=== PATIENT | female | born 1990 | race Caucasian/White ===

== ENCOUNTER 2021-04-19 12:35 | Emergency (ER) | payer OTHER, SELFPAY ==
--- NOTE | ~2021-04-19 | XR_ITS ---
XR lumbar spine min 4V DATE: 04/19/2021 13:50 INDICATION: Fall down stairs. Back pain. TECHNIQUE: AP, lateral, bilateral oblique and coned lateral lumbosacral views COMPARISON: None FINDINGS: There is minimal dextroscoliosis. There is severe degenerative disc disease at L5-S1. There is mild to moderate loss of interspace heig ht at L4-5. No spondylolysis or spondylolisthesis. The lumbar pedicles are intact. No fracture or bone destructio n is evident. The sacroiliac joints are intact. IMPRESSION: Severe degenerative disc disease at L5-S1 Reviewed, dictated and finalized at location B.
--- NOTE | ~2021-04-19 | XR_ITS ---
XR shoulder RT min 2V DATE: 04/19/2021 13:50 INDICATION: Fall downstairs. Right shoulder injury, pain TECHNIQUE: 4 views COMPARISON: None FINDINGS: No fracture or dislocation, periosteal reaction or bone destruction. No abnormal soft tiss ue calcification. There is thoracic dextroscoliosis. IMPRESSION: Negative right shoulder Reviewed, dictated and finalized at location B. IMPRESSION: Negative right shoulder
[2021-04-19 12:39] VITALS: BP 129/77; PULSE 81; RESP 18; TEMP 36.8; O2SAT 100
--- NOTE | 2021-04-19 13:45 | ED.FALL ---
HPI - Fall General Chief Complaint: Fall Stated Complaint: Fall Time Seen by Provider: 04/19/21 13:08 History of Present Illness HPI Narrative: Patient presents after a fall. Patient reports she was walking down her steps when she slipped on the carpet and slid down her stairs. She attempted to go about her daily activities however pain was increasing so she came to the ER for evaluation. Reports a history of right-sided sciatica which has been exacerbated by her recent fall. Her pain is primarily in her lower back is achy, constant, worse with any sort of movement radiates down her right leg. She also reports right shoulder pain achy, constant, no radiation, worse with use of the extremity. She does not believe she had any loss of consciousness she denies any neck pain she denies any focal numbness or weakness. She denies any bowel or bladder incontinence Related Data Allergies Allergy/AdvReac Type Severity Reaction Status Date / Time No Known Allergies Allergy Verified 04/19/21 13:05 Review of Systems Review of Systems: CONSTITUTIONAL: Denies fever, chills, or sweats. EYES: Denies visual changes, redness, or discharge. ENT: Denies rhinorrhea, congestion, sore throat, or otalgia. CARDIOVASCULAR: Denies chest pain, palpitations, or edema. RESPIRATORY: Denies cough or dyspnea. GASTROINTESTINAL: Denies abdominal pain, nausea, vomiting, or diarrhea. GENITOURINARY: Denies dysuria or hematuria. SKIN: Denies rash or itching. MUSCULOSKELETAL: Denies diffuse myalgia. NEUROLOGIC: Denies headache, numbness, dizziness, or weakness. PSYCHIATRIC: Denies anxiety or depression. All systems reviewed & are unremarkable except as noted in HPI and below Exam Narrative: GENERAL: Well-appearing, well-nourished, and in no acute distress. HEAD: Normocephalic, atraumatic. EYES: PERRLA and EOMI. ENT: Nares clear, no rhinorrhea or epistaxis. Mucous membranes moist. NECK: Supple. No masses. No JVD CHEST: Clear to auscultation. No respiratory distress. No wheezes rales or rhonchi EXTREMITIES: Normal range of motion. Mild diffuse tenderness in the right shoulder most noted posteriorly BACK: Moderate tenderness palpation on the right lumbar paraspinal area no step-offs or focal bony tenderness SKIN: Warm, dry, no rash. NEURO: 5 out of 5 strength in all extremities sensation intact to light touch in all extremities alert and oriented x3. PSYCH: Normal mood and affect. Course Reevaluation(s) Reevaluation #1: Patient resting comfortably she denied pain medications earlier. Imaging reviewed with patient. Patient comfortable outpatient plan. Date: 04/19/21 Time: 14:36 Vital Signs Vital signs: Vital Signs Temperature 36.8 C 04/19/21 12:39 Pulse Rate 81 04/19/21 12:39 Respiratory Rate 18 04/19/21 12:39 Blood Pressure 129/77 04/19/21 12:39 Pulse Oximetry 100 04/19/21 12:39 Temperature 36.8 C 04/19/21 12:39 Pulse Rate 81 04/19/21 12:39 Respiratory Rate 18 04/19/21 12:39 Blood Pressure 129/77 04/19/21 12:39 Pulse Oximetry 100 04/19/21 12:39 MDM - Fall MDM Narrative Medical decision making narrative: H&P as above, vss, pt looks clinically well, exam without open or draining wounds or neurovascular compromise, imaging clinically unremarkable for acute process, additional labs/img considered, symptomatic relief available as needed, on reevaluation pt continues to looks clinically well. Suspect mechanical event and soft tissue injuries, dns fracture, cauda equina, conus medullaris, cord compromise, intracranial hemorrhage. plan to tx/monitor as op w/ pcm f/u findings/plan discussed with pt, pt agree/comfortable with plan, return precautions given Imaging Data Radiologist's impression: Impressions Shoulder X-Ray 04/19/21 13:52 IMPRESSION: Negative right shoulder Lumbar Spine X-Ray 04/19/21 13:54 IMPRESSION: Severe degenerative disc disease at L5-S1 Discharge Plan Discharge Clinical Imp
== END 2021-04-19 14:51 | disposition home or self-care (01) ==
PROVIDERS: Emergency Provider Emergency Medicine; PCP Nurse Practitioner Family
DX: S30.0XXA Contusion of lower back and pelvis, initial encounter (principal); M25.511 Pain in right shoulder; M54.41 Lumbago with sciatica, right side; M51.36 Other intervertebral disc degeneration, lumbar region; W10.9XXA Fall (on) (from) unspecified stairs and steps, initial encounter
CPT/HCPCS: 72110; 73030; 99284

== ENCOUNTER 2025-07-21 15:49 | Emergency (ER) | payer OTHER, SELFPAY ==
--- NOTE | ~2025-07-21 | CT_ITS ---
EXAMINATION: CT abdomen pelvis w con DATE: 07/21/2025 20:02 INDICATION: Right lower quadrant abdominal pain, nausea and diarrhea TECHNIQUE: Computed tomography (CT) of the abdomen and pelvis was performed with 100 mL Omnipaque-350 intravenous contrast. Automated exposure control and iterative reconstruction technique were employed. The dose-length product was 988.27 mGy-cm. COMPARISON: None FINDINGS: Lung bases are clear. Heart size is normal. No pericardial or pleural effusion. Liver, gallbladder, spleen, pancreas, bilateral adrenal glands and kidneys are normal. Bowels including the appendix are normal. 4 cm right ovarian cyst. The left ovary and the bladder are normal. 1.5 cm subserosal fibroid at the posterior aspect of fundus. No free intraperitoneal gas or fluid. No pathologically enlarged abdominal or pelvic lymphadenopathy. L5-S1 anterior spinal fusion with interbody bone graft cages and anterior plate-screw fixation. IMPRESSION: 1. 4 cm right ovarian cyst. No other acute intra-abdominal/pelvic process with normal appendix. 2. 1.5 cm subserosal uterine fibroid. Reviewed, dictated and finalized at location A. OF STOCK
--- NOTE | ~2025-07-21 | XR_ITS ---
EXAMINATION: XR chest 2V DATE: 07/21/2025 18:07 INDICATION: Productive cough. Upper respiratory tract infection. TECHNIQUE: PA and lateral views of the chest were obtained. COMPARISON: Chest CT dated 08/15/2017 FINDINGS: The lungs are clear with no focal airspace opacities, pulmonary edema, pleural effusion or pneumothorax. The cardiomediastinal silhouette is normal. Mild midthoracic spondylosis. IMPRESSION: 1. No acute cardiopulmonary disease. Reviewed, dictated and finalized at location A. OPERATIONS LEAD
--- OUTSIDE RECORDS SUMMARY | 2025-07-21 15:51 | XMS_ITS | Encounter Summary ---
Author Organization [facility] - [facility] Address [address] [place] [address] Care Team Providers Care Teacher Home Therapy Name Role Phone Lilly Craig Primary Care Provider [phone] Encounter Details Date Type Department Care Team (Late st Contact Info) Description 05/06/[email or web address] [facility] Multispecialty Care - [facility] [address] [facility], [address] [place] [phone] Anastasiya Shah APRN [address] [facility] [address] [place], [place] [id number] Surgery Social History Tobacco Use Types Packs/Day Years Used Date Smoking Tobacco: Never Smokeless Tobacco: Never Alcohol Use Standard Drinks/Week Comments Yes 0 (1 standard drink = 0.6 oz pur e alcohol) 1 x month PHQ-2 Answer Date Recorded PHQ-2 Score - If the patient scores above 3, please move on to questions 3-9 0 12/05/2021 Comments No Sex and Gender Information Value Date Recorded Sex Assigned at Female 10/28/2024 10:50 AM CDT Legal Sex Female 1:59 PM UNDERWATER ROBOTICIST Gender Identity Not on file Sexual Orientation Not on file documented as of this encounter Progress Notes * Lilian Llamas MA - 05/07/2023 12:59 PM CDT Anastasiya does this patient need a follow up before being put on the surgery schedule? documented in this encounter Plan of Treatment Upcoming Encounters Date Type Department Care Team (Late st Contact Info) Description 08/19/2025 1:40 PM UNDERWATER ROBOTICIST Office Visit [facility] Family & Internal Medicine - [address] [address] Lilly Craig FNP [address] [place] [address] documented as of this encounter Visit Diagnoses Not on filedocumented in this encounter Additional Health Concerns Assessment Noted Time PHQ-9 Depression Total Score: 2 12/06/19 22 4:22 PM CDT documented as of this encounter Care Teams Teacher Home Therapy Relationship Specialty Start Date End Date Lilly Craig FNP [address] [place] [address] PCP - General Nurse Practitioner Family 12/30/20 documented as of this encounter
--- OUTSIDE RECORDS SUMMARY | 2025-07-21 15:51 | XMS_ITS | Encounter Summary ---
Author Organization [facility] - [facility] Address [address] [place] [address] Care Team Providers Care Charging Operator Name Role Phone Lilly Craig Primary Care Provider [phone] Encounter Details Date Type Department Care Team (Late st Contact Info) Description 11/08/2023 MyChart Message Enc [facility] Multispecialty Care - [facility] [address] [facility], [address] [place] [phone] Zack Mcdonald MD [address] [place], [place] [phone] Release form Social History Tobacco Use Types Packs/Day Years Used Date Smoking Tobacco: Never Smokeless Tobacco: Never Alcohol Use Standard Drinks/Week Comments Yes 0 (1 standard drink = 0.6 oz pur e alcohol) 1 x month [facility] Utilities Answer Date Recorded In the past 12 months has e electric, gas, oil, or water company threatened to shut off services in your home? No 08/19/2023 Humiliation, Afraid, Rape, and Kick questionnair e Answer Date Recorded Within the last year, have y ou been afraid of your partner or ex-partner? No 08/19/2023 Within the last year, have y ou been humiliated or emotionally abused in other ways by your partner or ex-partner? No Within the last year, have y ou been kicked, hit, slapped, or otherwise physically hurt by your partner or ex-partner? No 08/19/2023 Within the last year, have y ou been raped or forced to have any kind of sexual activity by your partner or ex-partner? No 08/19/2023 Overall Financial Resource Strain (CARDIA) Answe r Date Recorded How hard is it for you to pa y for the very basics like food, housing, medical care, and heating? Not hard at all 08/19/2023 PHQ-2 Answer Date Recorded Patient Health Questionnaire-2 Score 0 07/25/2023 Hunger Vital Sign Answer Date Recorded Within the past 12 months, y ou worried that your food would run out before you got the money to buy more. Never true 08/19/19 24 Within the past 12 months, t he food you bought just didn't last and you didn't have money to get more. Never true 08/19/2023 PRAPARE - Transportation Answer Date Re corded In the past 12 months, has l ack of transportation kept you from medical appointments or from getting medications? No 07/23 In the past 12 months, has l ack of transportation kept you from meetings, work, or from getting things needed for daily living? No 08/19/2023 Housing Stability Vital Sign Answer Corey e Recorded In the last 12 months, was t here a time when you were not able to pay the mortgage or rent on time? No 08/19/2023 In the last 12 months, how many places have you lived? 1 08/19/2023 In the last 12 months, was t here a time when you did not have a steady place to sleep or slept in a care home (including now)? No 08/19/2023 Comments No Sex and Gender Information Value Date Recorded Sex Assigned at Female 10/28/2024 10:50 AM CDT Legal Sex Female 1:59 PM HEALTH AND SAFETY 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 Gender Identity Not on file Sexual Orientation Not on file documented as of this encounter Functional Status * Are you deaf or do you have serious difficulty hearing Answer Date of Assessment Author Status No 08/19/2023 10:50 PM Duane Allen RN Active * Are you blind or do you have serious difficulty seeing, even when wearing glasses? Answer Date of Assessment Author Status No 08/19/2023 10:50 PM Duane Allen RN Active * Do you have serious difficulty walking or climbing stairs? Answer Date of Assessment Author Status No 08/19/2023 10:50 PM Duane Allen RN Active * Do you have difficulty dressing or bathing? Answer Date of Assessment Author Status No 08/19/2023 10:50 PM Duane Allen RN Active * Because of a physical, mental, or emotional condition, do you have difficulty doing errands alone such as visiting a doctor's office or shopping? Answer Date of Assessment Author Status No 08/19/2023 10:50 PM Duane Allen RN Active documented as of this encounter Mental Status * Because of a physical, mental, or emotional condition, do you have serious difficulty concentrating, remembering, or making decisions? Answer Entry Date Author Status No 08/19/2023 10:50 PM Duane Allen RN Active documented in this encounter Progress Notes * Carol Rose LPN - 11/12/2023 3:27 PM CDT Pt picked up return to work form at [facility] today. documented in this encounter Plan of Treatment Upcoming Encounters Date Type Department Care Team (Late st Contact Info) Description 08/19/2025 1:40 PM HEALTH AND SAFETY 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 Office Visit [facility] Family & Internal Medicine - [place] [phone] [place] [address] Lilly Craig FNP [facility] [place] [address] documented as of this encounter Goals Goal Patient Goal Type Associated Problems Recent Progress Patient-Stated? Author Family - family caregiver with be involved in care transitions and discharge planning Lifestyle No Sander Shaffer, RN documented as of this encounter Visit Diagnoses Not on filedocumented in this encounter Additional Health Concerns Assessment Noted Time PHQ-9 Depression Total Score: 2 07/25/19 24 4:08 PM HEALTH AND SAFETY 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 documented as of this encounter Care Teams Charging Operator Relationship Specialty Start Date End Date Lilly Craig FNP [address] [place] [phone] PCP - General Nurse Practitioner Family 12/30/20 documented as of this encounter
--- OUTSIDE RECORDS SUMMARY | 2025-07-21 15:51 | XMS_ITS | Encounter Summary ---
Author Organization [facility] Address [address] [place] [address] Care Team Providers Care Supervisor Fish Bait Processing Name Role Phone Lilly Craig Primary Care Provider [phone] Encounter Details Date Type Department Care Team (Late st Contact Info) Description 04/08/2022 MyChart Message Enc [facility] Family & Internal Medicine - [place] [address] [place] [address] Lilly Craig FNP [address] [place] [address] Covid test Social History Tobacco Use Types Packs/Day Years [...] AM CDT Legal Sex Female 1:59 PM AIRLINE HOSTESS Gender Identity Not on file Sexual Orientation Not on file documented as of this encounter Progress Notes * ILDEFONSO Stephens - 04/09/2022 5:14 PM CDT We can offer her paxlovid treatment documented in this encounter Plan of Treatment Upcoming Encounters Date Type Department Care Team (Late st Contact Info) Description 08/19/2025 1:40 PM AIRLINE HOSTESS Office Visit [facility] Family & Internal Medicine - [address] [address] Lilly Craig FNP [address] [place] [address] documented as of this encounter Visit Diagnoses Not on filedocumented in this encounter Additional Health Concerns Assessment Noted Time PHQ-9 Depression Total Score: 2 12/06/19 22 4:22 PM CDT documented as of this encounter Care Teams Supervisor Fish Bait Processing Relationship Specialty Start Date End Date Lilly Craig FNP [address] [place] [address] PCP - General Nurse Practitioner Family 12/30/20 documented as of this encounter
--- OUTSIDE RECORDS SUMMARY | 2025-07-21 15:51 | XMS_ITS | Encounter Summary ---
Author Organization [facility] - [facility] Address [address] [place] [address] Care Team Providers Care Sponge Packer Name Role Phone Lilly Craig Primary Care Provider [phone] Encounter Details Date Type Department Care Team (Late st Contact Info) Description 09/06/2023 MyChart Message Enc [facility] Multispecialty Care - [facility] [address] [facility], [address] [place] [phone] Zack Mcdonald MD 3 [place], [place] [phone] Short term disability Social History Tobacco Use Types Packs/Day Years Used Date Smoking Tobacco: Never Smokeless Tobacco: Never Alcohol Use Standard Drinks/Week Comments Yes 0 (1 standard drink = 0.6 oz pur e alcohol) 1 x month [facility] Utilities Answer Date Recorded In the past [...] place to sleep or slept in a long-term (including now)? No 08/19/2023 Comments No Sex and Gender Information Value Date Recorded Sex Assigned at Female 10/28/2024 10:50 AM CDT Legal Sex Female 1:59 PM CLINICAL LABORATORY SCIENTIST Gender Identity Not on file Sexual Orientation [...] Allen RN Active documented in this encounter Plan of Treatment Upcoming Encounters Date Type Department Care Team (Late st Contact Info) Description 08/19/2025 1:40 PM CLINICAL LABORATORY SCIENTIST Office Visit [facility] Family & Internal Medicine - [address] [phone] Lilly Craig FNP [address] [place] [address] documented as of this encounter Goals Goal Patient Goal Type Associated Problems Recent Progress Patient-Stated? Author Family - family caregiver with be involved in care transitions and discharge planning Lifestyle No Sander Shaffer RN documented as of this encounter Visit Diagnoses Not on filedocumented in this encounter Additional Health Concerns Assessment Noted Time PHQ-9 Depression Total Score: 2 07/25/19 24 4:08 PM CLINICAL LABORATORY SCIENTIST documented as of this encounter Care Teams Sponge Packer Relationship Specialty Start Date End Date Lilly Craig FNP [address] [place] [address] PCP - General Nurse Practitioner Family 12/30/20 documented as of this encounter
--- OUTSIDE RECORDS SUMMARY | 2025-07-21 15:51 | XMS_ITS | Clinical Summary ---
Author Organization [facility] Address [address] [facility] [place] [address] Care Team Providers Care Juvenile Correctional Officer Name Role Phone Unavailable Primary Care Provider Unavailabl e Source Comments [facility],non-owned Affiliates and Associated Physician Practices is amultiple site organization consisting of ambulatory clinics and hospital sitesin [place], [place], [place] and [place]. This disclosure is being madepursuant to the Care Everywhere program and may not contain all information available regarding this patient. Last updated 18.[facility] Allergies No known active allergies Medications * Be aware that medications may not be up to date on this document. Alwaysverify current medications with the patient. norgestim-eth estrad triphasic (TRI-SPRINTEC) 0.18/0.215/0.25 MG-35 MCG tablet Take 1 tablet by mouth once daily Active SERTRALINE HCL PO Active SUMAtriptan (IMITREX) 100 MG tablet TAKE ONE TABLET BY MOUTH AT ONSET OF MIGRAINE. MAY REPEAT ONE TIME IN 2 4 HOURS 12/23/2020 Active Cyanocobalamin (VITAMIN B12) 100 MCG Active Ergocalciferol (VITAMIN D2 PO) Acti ve Social History Tobacco Use Types Packs/Day Years Used Date Smoking Tobacco: Never Smokeless Tobacco: Never PHQ-2 Answer Date Recorded PHQ2 TOTAL SCORE 0 11/24/2020 Comments No Sex and Gender Information Value Date Recorded Sex Assigned at Female 07/18/2021 11:30 AM CONSTRUCTION CONTRACTOR Legal Sex Female 11:28 AM CDT Gender Identity Not on file Sexual Orientation Not on file Last Filed Vital Signs Vital Sign Reading Time Taken Comments Blood Pressure 118/82 01/26/2021 2:29 PM CDT Pulse 74 01/26/2021 2:29 PM CDT Temperature 36.8 C (98.2 F) 01/26/2021 2:29 PM CDT Respiratory Rate 16 01/26/2021 2:29 PM CDT Oxygen Saturation 99% 01/26/2021 2:29 PM CDT Inhaled Oxygen Concentration - - Weight 99.8 kg (220 lb) 01/26/2021 2:29 PM CDT Height 170.2 cm (5' 7) 01/26/2021 2:29 PM CDT Body Mass Index 34.46 01/26/2021 2:29 PM CDT Plan of Treatment Health Maintenance Due Date Last Done Comments HIV SCREENING 2004 HEPATITIS C SCREENING 03/01/2007 DTAP/TDAP/TD VACCINES (1 - Tdap) 2008 HEPATITIS B VACCINE (1 of 3 - 19+ 3-dose series) 2008 HPV VACCINE (1 - 3-dose SCDM series) 2016 DEPRESSION SCREENING 07/22/2024 COVID-19 VACCINE (2 - 2024-2 6 season) 2025 10/29/2020 INFLUENZA VACCINE (#1) 2025 ZOSTER VACCINE (1 of 2) 2039 HIB VACCINE Aged Out No longer eligi ble based on patient's age to complete this topic MENINGOCOCCAL (Group B) VACC INE SHARED DECISION-MAKING Aged Out No longer eligibl e based on patient's age to complete this topic MENINGOCOCCAL GROUPS A/C/Y/W VACCINE Aged Out No longer eligible b ased on patient's age to complete this topic PNEUMOCOCCAL VACCINE Aged Out No long er eligible based on patient's age to complete this topic Insurance COMMERCIAL GENERIC Member Subscriber Plan / Payer (Ef fective 2020-Present) Name:Lilly Rosa Relation to Subscriber:Self Name:Stuart Rosen Lilly Payer ID:Not on file Type:Commercial Address: [place] [id number]
--- OUTSIDE RECORDS SUMMARY | 2025-07-21 15:51 | XMS_ITS | Encounter Summary ---
Author Organization [facility] Address [address] [place] [address] Care Team Providers Care C[employer]pillar Driver Name Role Phone Lilly Craig Primary Care Provider [phone] Encounter Details Date Type Department Care Team (Late st Contact Info) Description 08/08/2023 MyChart Message Enc [facility] Multispecialty Care - [facility] [address] [facility], [address] [place] [phone] Zack Mcdonald MD [address] [place], [place] [phone] Short term disability Social History Tobacco Use Types Packs/Day Years Used Date Smoking Tobacco: Never Smokeless Tobacco: Never Alcohol Use Standard Drinks/Week Comments Yes 0 (1 standard drink = 0.6 oz pur e alcohol) 1 x month PHQ-2 Answer Date Recorded Patient Health Questionnaire-2 Score 0 07/25/2023 Comments No Sex and Gender Information Value Date Recorded Sex Assigned at Female 10/28/2024 10:50 AM CDT Legal Sex Female 1:59 PM SENIOR LOAN OFFICER Gender Identity Not on file Sexual Orientation Not on file documented as of this encounter Plan of Treatment Upcoming Encounters Date Type Department Care Team (Late st Contact Info) Description 08/19/2025 1:40 PM SENIOR LOAN OFFICER Office Visit [facility] Family & Internal Medicine - [place] [address] [place] [address] Lilly Craig FNP [address] [place] [address] documented as of this encounter Visit Diagnoses Not on filedocumented in this encounter Additional Health Concerns Assessment Noted Time PHQ-9 Depression Total Score: 2 07/25/19 24 4:08 PM SENIOR LOAN OFFICER documented as of this encounter Care Teams C[employer]pillar Driver Relationship Specialty Start Date End Date Lilly Craig FNP [address] [place] [address] PCP - General Nurse Practitioner Family 12/30/20 documented as of this encounter
--- OUTSIDE RECORDS SUMMARY | 2025-07-21 15:51 | XMS_ITS | Encounter Summary ---
Author Organization [facility] Address [address] [place] [address] Care Team Providers Care Therapy Technician Name Role Phone Lilly Craig Primary Care Provider [phone] Encounter Details Date Type Department Care Team (Late st Contact Info) Description 08/05/2023 Prep for Procedure [facility] [place], [place] [phone] Lilly Craig FNP [facility] [address] [place], [place] [phone] Social History Tobacco Use Types Packs/Day Years [...] AM CDT Legal Sex Female 1:59 PM AUTOMATIC PILOT MECHANIC Gender Identity Not on file Sexual Orientation Not on file documented as of this encounter Plan of Treatment Upcoming Encounters Date Type Department Care Team (Late st Contact Info) Description 08/19/2025 1:40 PM AUTOMATIC PILOT MECHANIC Office Visit [facility] Family & Internal Medicine [address] [address] Lilly Craig FNP [address] [place] [address] documented as of this encounter Visit Diagnoses Diagnosis Vitamin B12 deficiency- Primary Other B-complex deficiencies Class 1 obesity documented in this encounter Additional Health Concerns Assessment Noted Time PHQ-9 Depression Total Score: 2 07/25/19 24 4:08 PM AUTOMATIC PILOT MECHANIC documented as of this encounter Care Teams Therapy Technician Relationship Specialty Start Date End Date Lilly Craig FNP [address] [place] [address] PCP - General Nurse Practitioner Family 12/30/20 documented as of this encounter
--- OUTSIDE RECORDS SUMMARY | 2025-07-21 15:51 | XMS_ITS | Clinical Summary ---
Author Organization [facility] Address [address] [place] [address] Care Team Providers Care Director Of Recruitment Name Role Phone Lucila Craig Primary Care Provider [phone] Allergies Active Allergy Reactions Criticality Noted Date Comments Menthol (Topical Analgesic) Redness 08/05/19 24 Icy Hot Redness 08/05/2023 Medications Cyanocobalamin (VITAMIN B 12 OR) Take 1 tablet by mouth daily. Active vitamin D3 (CHOLECALCIFEROL) 125 mcg Tab Take 1 tablet (125 mcg total) by mouth daily. Active Misc. Devices MiscIndications:L umbar spine instability 1 each by Does not apply route continuous. LSO for continuous wear while ambulating or up in chair. 1 each 3 Active TRI-SPRINTEC 0.18/0.215/0.25 MG-35 MCG tabletIndications :Encounter for surveillance of contraceptive pills Take 1 tablet by mouth daily. 84 tablet 3 5 Active SUMAtriptan (IMITREX) 100 MG tabletIndications :Migraine without status migrainosus, not intractable, unspecified migraine type TAKE 1 TABLET AT ONSET OF SYMPTOMS, MAY REPEAT 2 HOURS LATER IF NEEDED. MAX OF 2 TABLETS IN 24 HOUR PERIOD 9 tablet 5 Active sertraline (ZOLOFT) 50 MG tabletIndications :Anxiety TAKE 1 & 1/2 (ONE & ONE-HALF) TABLETS BY MOUTH ONCE DAILY 135 tablet Active Active Problems Problem Noted Date Diagnosed Date Encounter for surveillance of contraceptive pill s 10/28/2024 S/P lumbar spine operation 09/10/2023 S/P lumbar fusion 08/19/2023 Other intervertebral disc degeneration, lumbar r egion 02/08/2023 Foraminal stenosis of lumbosacral region 023 Facet hypertrophy of lumbar region 02/08/2023 Primary insomnia 12/05/2021 Hypoglycemia 12/05/2021 B12 deficiency 12/05/2021 Vitamin D deficiency 12/05/2021 Upper back strain, subsequent encounter 05/20/20 Chronic low back pain, unspe cified back pain laterality, unspecified whether sciatica present 12/30/2020 Curvature of spine 12/30/2020 Costochondritis 12/30/2020 Migraine without status migr ainosus, not intractable, unspecified migraine type 12/30/2020 Class 1 obesity due to exces s calories without serious comorbidity with body mass index (BMI) of 32.0 to 32.9 in adult 12/30/2020 Friable cervix 02/22/2017 Anxiety 03/08/2015 Immunizations Immunization Administration Dates Next Due Tdap (Adacel) 12/29/2020 Family History Medical History Relation Comments Diabetes Maternal Grandfather Arthritis Maternal Grandmother Cancer Sister 1 cervical Other Sister 1 PCOS Cancer Sister 2 Cervical cancer Relation Status Comments Father Alive Maternal Grandfather Maternal Grandmother Mother Alive Sister 1 Alive Sister 2 Social History Tobacco Use Types Packs/Day Years Used Date Smoking Tobacco: Never Smokeless Tobacco: Never Tobacco Cessation:Counseling Given: Not Answered Alcohol Use Standard Drinks/Week Comments Yes 1 (1 standard drink = 0.6 oz pur e alcohol) 1 x month [facility] Utilities Answer Date Recorded In the past 12 months has e [employer]), gas, oil, or water [employer] threatened to shut off services in your [...] Date Recorded Patient Health Questionnaire-2 Score 0 10/28/2024 Hunger Vital Sign Answer Date Recorded Within [...] place to sleep or slept in a longterm (including now)? 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 Gender Identity Not on file Sexual Orientation Not on file Last Filed Vital Signs Vital Sign Reading Time Taken Comments Blood Pressure 104/72 10/28/2024 10:51 AM CDT Pulse 91 10/28/2024 10:51 AM CDT Temperature 36.8 C (98.2 F) 10/28/2024 10:51 AM CDT Respiratory Rate 16 10/28/2024 10:51 AM CDT Oxygen Saturation 98% 10/28/2024 10:51 AM CDT Inhaled Oxygen Concentration - - Weight 97 kg (213 lb 14.4 oz) 10/28/2024 10:51 A M CDT Height 165.1 cm (5' 5) 10/28/2024 10:51 AM CDT Body Mass Index 35.59 10/28/2024 10:51 AM CDT Plan of Treatment Upcoming Encounters Date Type Department Care Team (Late st Contact Info) Description 08/19/2025 1:40 PM WATER TREATMENT 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 Office Visit [facility] Family & Internal Medicine - [address] [phone] Lucila Craig, PROFESSOR OF NURSING[address] [phone] Health Maintenance Due Date Last Done Comments Hepatitis B Vaccines (1 of 3 - 19+ 3-dose series) 2008 HPV Vaccines (1 - 3-dose SCDM series) 2016 COVID-19 Vaccine ( season) 2025 10/29/2020 Influenza Adult (#1) 2025 Annual Physical 10/28/2025 10/28/2024, 10/2023, 02/08/2022 Cervical Cancer Screening Pap Smear (Age 30 to 64) Every 3 Years 10/29/2027 10/28/2024, 07/25/2023, 02/08/2022, Additional history exists Cervical Cancer Screening Pap with HPV Testing (Age 30 to 64) Every 5 Years 10/28/2029 10/28/2024, 07/25/2023, 02/08/2022, Additional history exists Cervical Cancer Screening with HPV 10/28/2029 DTaP, Tdap and Td Vaccines (2 - Td or Tdap) 12/29/2030 12/29/2020 Hepatitis C Completed 01/06/2021 PHQ-2 (Physician [place]) Completed 10/28/2024 Hepatitis A Vaccines Aged Out No long er eligible based on patient's age to complete this topic Meningococcal B Vaccine Aged Out No l onger eligible based on patient's age to complete this topic Meningococcal Vaccine Aged Out No stacie girma eligible based on patient's age to complete this topic Pneumococcal Vaccine: Pediatrics (0 to 5 Years) and At-Risk Patients (6 to 49 Years) Aged Out No longer eligible based on patient's age to complete this topic RSV Immunizations Under 20 Months Aged Out No longer eligible based on patient's age to complete this topic Goals Goal Patient Goal Type Associated Problems Recent Progress Patient-Stated? Author Family - family caregiver with be involved in care transitions and discharge planning Lifestyle No Sander Shaffer, RN Medical Devices Implanted Type Area Theatre Instructor Device Identifier Shelf Expiration Date Model / Serial / Lot Graft Infuse Bone Small - [id number] Implanted:Qty: 1 on 08/19/2023 by Zack Mcdonald MD at [facility] Bone N/A: Spine Lumbar [employer] [id number] 01/19/2025 [id number] / / [id number] Medtronic 35mm Pyramid Plate Implanted:Qty: 1 on 08/19/2023 by Zack Mcdonald MD at [facility] Plate N/A: Spine Lumbar [id number] / / Medtronic 6.5x30mm Screw Implanted:Qty: 4 on 08/19/2023 by Zack Mcdonald MD at [facility] Screw N/A: Spine Lumbar [employer] [id number] / / Medtronic Anteralign Spinal System With Titan Nanolock Ls Spacer [id number] Implanted:Qty: 1 on 08/19/2023 by Zack Mcdonald MD at [facility] Spacer N/A: Spine Lumbar [employer] 01/15/2030 [id number] / / [id number] Graft Soft Tissue 4x4cm [facility] Allograft - [id number] Implanted:Qty: 1 on 08/19/2023 by Zack Mcdonald MD at [facility] Tissue N/A: Spine Lumbar NUTECH 10/23/2027 [id number] / [id number] / Medtronic Pilo Demineralized Bone Matrix 2.5cc Implanted:Qty: 1 on 08/19/2023 by Zack Mcdonald MD at [facility] N/A: Spine Lumbar [employer] 11/18/2025 [id number] / [id number] / Medtronic 12mm Anteralign Implanted:Qty: 1 on 08/19/2023 by Zack Mcdonald MD at [facility] N/A: Spine Lumbar [employer] [id number] / / [id number] Procedures Procedure Name Priority Date/Time Associated Diagnosis Comments HUMAN PAPILLOMAVIRUS, HIGH-RISK TYPES Routine 10/28/2024 12:00 PM CDT CYTOPATH CERV/VAG THIN LAYER Routine 10/28/2024 12:00 AM CDT Pap smear, as part of routine gynecological examination Routine cervical smear HEPATITIS C ANTIBODY W/RFX TO HCV RNA Routine 01/06/2021 9:27 AM CDT Need for hepatitis C screening test from Last 3 Months or Most Recently Relevant to Health Maintenance Results * HUMAN PAPILLOMAVIRUS, HIGH-RISK TYPES (10/28/2024 12:00 PM CDT) SPEC DESCRIPTION CERVIX 10/30/19 1:02 PM CDT [facility] HPV DNA HIGH RISK NEGATIVE NEGATIVE 10/30/2024 12:37 PM CDT [facility] Comment:SEE CYTOLOGY REPORT 10/28/2024 12:0 0 PM CDT us Lucila FREGOSO PATHOLOGY/CYTOLOGY ORDERABLES Final Result [facility] [address] [place] [address], * Cytopath Cerv/Vag Thin Layer (10/28/2024 12:00 AM CDT) THIN PREP PAP [facility] [address] [place] [address] Department of Pathology Pathology Report CERVICAL/VAGINAL PAP SMEAR REPORT Name: LUCILA RTIPLETT Age: 8 1990 (Age: 34) Location: [facility] Sex: F Collected Date: 10/28/2024 Hospital #: [id number] Date Received: 10/29/2024 Date Reported: 11/02/2024 Provider: LUCILA FREGOSO-C INTERPRETATION CERVICAL/ENDOCERVI PATRICE: SATISFACTORY FOR EVALUATION. ENDOCERVICAL/TRANS FORMATION ZONE COMPONENT ABSENT. NEGATIVE FOR INTRAEPITHELIAL LESION OR MALIGNANCY. NEGATIVE FOR HIGH RISK HPV. The FDA approved Aptima HPV assay is an in vitro nucleic acid amplification test for the qualitative detection of E6/E7 viral messenger RNA (mRNA) from 14 high-risk types of human papillomavirus (HPV) in cervical specimens. The high-risk HPV types detected by the assay include: 16,18,31,33,35,39, 45,51,52,56,58,59, 66, and 68. Electronically Signed Out By JASON Collins (ASCP) CLINICAL HISTORY Z01.419 PAP SMEAR, PART OF ROUTINE GYNECOLOGICAL EXAMINATION SCREENING PAP ThinPrep Pap Test with HR HPV testing requested. Date of Last Menstrual Period: 10/14/2024 Menstrual Status: Regular SPECIMEN SUBMITTED CERVICAL/ENDOCERVI PATRICE Specimen Received:1 Thin Prep Vial, Image Assisted Pap (SMD) Please note: The Pap smear is not a diagnostic test. It is a screening test. Negative results on combined screening (Pap test and HPV-DNA) have a high negative predictive value (99.1-100 percent) for cervical cancer. The pap test is not effective in detecting cervical adenocarcinoma. [facility] () [facility] 10/28/2024 10/29/2024 10: 42 AM CDT Comment:CERVICAL/ENDOCERVICA L Lucila FREGOSO PATHOLOGY/CYTOLOGY ORDERABLES Final Result [facility] [address] [place] [address], * HEPATITIS C ANTIBODY W/RFX TO HCV RNA ([facility]) (01/06/2021 9:27 AM CDT) HEPATITIS C AB Nonreactive Nonreactive 01/10/20 7:38 PM CDT [email or web address] JOSE BRADEN SIGNAL TO CUTOFF 0.02 <1.00 ratio 01/09/2021 7:38 PM CDT [email or web address] JOSE BRADEN Comment: HCV antibody was Nonreactive. There is no laboratory evidence of HCV infection. In most cases, no further action is required. However, if recent HCV exposure is suspected, a test for HCV RNA (test code 05101) is suggested. For additional information please refer to http://education.[employer]/faq/GVN59i5 (This link is being provided for informational/ educational purposes only.) ADDITIONAL TESTING REPORT 01/09/2021 7:38 PM CDT [email or web address] JOSE BRADEN Comment: Not indicated Test Performed by Arron Moya [facility], [address] [place], [place] Christophe Keenan M.D., Ph.D., Director of Laboratories , [facility] [id number] 01/06/2021 9:27 AM CDT Lucila FREGOSO LABORATORY Final Result [facility] [address] [place] [address], from Last 3 Months or Most Recently Relevant to Health Maintenance Insurance [facility] Advance Directives Documents on File Type Date Recorded 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
[2025-07-21 16:01] VITALS: BP 139/86; PULSE 83; RESP 14; TEMP 36.4; O2SAT 100
--- NOTE | 2025-07-21 17:55 | ED_ITS ---
HPI - General Adult General Chief complaint: Upper Respiratory Infection <SATISH Martell Last Filed: 07/21/25 18:00> Stated complaint: sinus pressure <SATISH Martell Last Filed: 07/21/25 18:00> Time Seen by Provider: 07/21/25 17:55 <SATISH Martell Last Filed: 07/21/25 18:00> Focused HPI: Patient is a 35 y/o female who presents to the ED with c/o URI sx's and RLQ abd pain. Patient reports having URI sx's since Saturday. C/o sinus/nasal congestion, rhinorrhea, productive cough, decreased appetite, fatigue, chills/diaphoresis, nausea, intermittent diarrhea, myalgias. Denies known fevers or sick contacts. Reports pain in her right lower abdomen over the past couple days. States it is worse when she needs to have a BM. GENERAL: Well-appearing, obese with BMI of 35.6, and in no acute distress. HEAD: Normocephalic, atraumatic. CHEST: Clear to auscultation. ?No respiratory distress. HEART: Regular rate and rhythm.? ABD: TTP in RLQ, R mid to upper abdomen, no rebound. NEURO: ?Alert and oriented x3. Patient screened in triage and initial orders placed.? ?Additional care and disposition to be based upon?diagnostic testing and treatment. <SATISH Martell Last Filed: 07/21/25 18:00> Source: patient <SATISH Martell Last Filed: 07/21/25 18:00> Mode of arrival: ambulatory <SATISH Martell Last Filed: 07/21/25 18:00> Limitations: no limitations <SATISH Martell Last Filed: 07/21/25 18:00> Related Data Allergies/adverse reactions: Allergies Allergy/AdvReac Type Severity Reaction Status Date / Time No Known Allergies Allergy Verified 04/19/21 13:05 <SATISH Martell Last Filed: 07/21/25 18:00> Review of Systems 2 Review of Systems: As reviewed above in HPI <Devante Myrick MD - Last Filed: 07/22/25 07:21> All systems reviewed & are unremarkable except as noted in HPI and below < Devante Myrick MD - Last Filed: 07/22/25 07:21> Exam 2 Narrative: GENERAL: Well-appearing, obese with BMI of 35.6, and in no acute distress. HEAD: Normocephalic, atraumatic. CHEST: Clear to auscultation. ?No respiratory distress. HEART: Regular rate and rhythm.? ABD: Minimal tenderness in RLQ, R mid to upper abdomen, no rebound. No peritonitis or bruising NEURO: ?Alert and oriented x3. <Devante Myrick MD - Last Filed: 07/22/25 07:21> Course Vital Signs Vital signs: Vital Signs Temperature 36.4 C 07/21/25 16:01 Pulse Rate 83 07/21/25 16:01 Respiratory Rate 14 07/21/25 16:01 Blood Pressure 139/86 07/21/25 16:01 Pulse Oximetry 100 07/21/25 16:01 Temperature 36.4 C 07/21/25 16:01 Pulse Rate 97 07/21/25 20:58 Respiratory Rate 20 07/21/25 20:58 Blood Pressure 132/89 07/21/25 20:58 Pulse Oximetry 100 07/21/25 20:58 <Tia Sage PA-C - Last Filed: 07/21/25 18:00> Vital Signs Temperature 36.4 C 07/21/25 16:01 Pulse Rate 83 07/21/25 16:01 Respiratory Rate 14 07/21/25 16:01 Blood Pressure 139/86 07/21/25 16:01 Pulse Oximetry 100 07/21/25 16:01 Temperature 36.4 C 07/21/25 16:01 Pulse Rate 97 07/21/25 20:58 Respiratory Rate 20 07/21/25 20:58 Blood Pressure 132/89 07/21/25 20:58 Pulse Oximetry 100 07/21/25 20:58 <Devante Myrick MD - Last Filed: 07/22/25 07:21> MDM MDM Narrative Medical decision making narrative: MSE by GOSIA in triage <Tia Sage PA-C - Last Filed: 07/21/25 18:00> MSE by GOSIA in triage. 35 y/o female who presents to the ED with c/o URI sx's and RLQ abd pain. Patient reports having URI sx's since Saturday. C/o sinus/nasal congestion, rhinorrhea, productive cough, decreased appetite, fatigue, chills/diaphoresis, nausea, intermittent diarrhea, myalgias. Denies known fevers or sick contacts. Reports pain in her right lower abdomen over the past couple days. States it is worse when she needs to have a BM. Reassuring benign abdominal examination. No tachycardia, fever, hypoxemia. Blood pressure stable. Possibility of viral syndrome, COVID, flu, RSV, possibility of intra-abdominal infection such as appendicitis. CT scan shows no appendicitis. Ovarian cyst found likely cause for intermittent right lower quadrant pain but she is comfortable presently without any persistent pain. Informed about this for follow-up. Tested positive for influenza. Safe for discharge. <Devante Myrick MD - Last Filed: 07/22/25 07:21> Differential Diagnosis Differential Diagnosis: Possibility of viral syndrome, COVID, flu, RSV, possibility of intra- abdominal infection such as appendicitis. <Devante Myrick MD - Last Filed: 07/22/25 07:21> Lab Data [facility] Lab Attestation statement: I personally reviewed the patient's lab results. <Devante Myrick MD - Last Filed: 07/22/25 07:21> Result diagrams: 07/21/25 18:01 07/21/25 18:01 <Tia Sage PA-C - Last Filed: 07/21/25 18:00> Labs: Lab Results 07/21/25 Range/Units 18:01 WBC 6.1 (4.5-10.0) K/mm3 RBC 4.30 (4.2-5.4) M/mm3 Hgb 13.7 (12.0-15.0) g/dL Hct 41.0 (37.0-47.0) % MCV 95.3 (80-100) fl MCH 31.9 (26-34) pg MCHC 33.4 (32-36) g/dl RDW 12.2 (11.5-14.5) % Plt Count 295 (150-375) k/mm3 MPV 10.2 (7.4-10.4) fl Immature Gran % (Auto) 0.2 (0-0.5) % Neut % (Auto) 53.6 (45.5-73.1) % Lymph % (Auto) 33.2 (18.3-44.2) % [place] % (Auto) 12.2 H (2.6-8.5) % Eos % (Auto) 0.5 (0-4.4) % Baso % (Auto) 0.3 (0.2-1.2) % Lymph # (Auto) 2.01 (0.9-3.2) K/mm3 [place] # (Auto) 0.7 H (0.1-0.6) K/mm3 Eos # (Auto) 0.0 (0-0.3) K/mm3 Baso # (Auto) 0.0 (0.0-0.1) K/mm3 Abs Immat Gran (auto) 0.01 (0.00-0.031) K/mm3 Absolute Neuts (auto) 3.3 (1.3-6.7) K/mm3 Absolute Nucleated RBC 0.000 (0.0-0.012) K/mm3 Nucleated RBC % 0.0 (0.0-0.2) % Sodium 135 L (137-145) mmol/L Potassium 4.9 (3.4-5.0) mmol/L Chloride 101 (98-107) mmol/L Carbon Dioxide 29 (22-30) mmol/L Anion Gap 5 (4-12) mmol/L BUN 4 L (7-17) mg/dL Creatinine 0.55 L (0.7-1.0) mg/dL Estim Creat Clear Calc 142 ml/min Estimated GFR > 60 (59 - ) Glucose 91 (65-110) mg/dL Calcium 9.4 (8.4-10.2) mg/dL Total Bilirubin 0.6 (0.2-1.3) mg/dL AST 46 H (14-36) U/L ALT 31 (6-35) U/L Alkaline Phosphatase 54 (38-126) U/L Total Protein 7.7 (6.3-8.2) g/dL Albumin 4.2 (3.5-5.1) g/dL Lipase 84 (23-300) U/L Influenza A (RT-PCR) Positive A (Negative) Influenza B (RT-PCR) Negative (Negative) RSV (RT-PCR) Negative (Negative) SARS-CoV-2 RNA (RT-PCR) Negative (Negative) <Tia Sage PA-C - Last Filed: 07/21/25 18:00> Lab Results 07/21/25 Range/Units 18:01 WBC 6.1 (4.5-10.0) K/mm3 RBC 4.30 (4.2-5.4) M/mm3 Hgb 13.7 (12.0-15.0) g/dL Hct 41.0 (37.0-47.0) % MCV 95.3 (80-100) fl MCH 31.9 (26-34) pg MCHC 33.4 (32-36) g/dl RDW 12.2 (11.5-14.5) % Plt Count 295 (150-375) k/mm3 MPV 10.2 (7.4-10.4) fl Immature Gran % (Auto) 0.2 (0-0.5) % Neut % (Auto) 53.6 (45.5-73.1) % Lymph % (Auto) 33.2 (18.3-44.2) % [place] % (Auto) 12.2 H (2.6-8.5) % Eos % (Auto) 0.5 (0-4.4) % Baso % (Auto) 0.3 (0.2-1.2) % Lymph # (Auto) 2.01 (0.9-3.2) K/mm3 [place] # (Auto) 0.7 H (0.1-0.6) K/mm3 Eos # (Auto) 0.0 (0-0.3) K/mm3 Baso # (Auto) 0.0 (0.0-0.1) K/mm3 Abs Immat Gran (auto) 0.01 (0.00-0.031) K/mm3 Absolute Neuts (auto) 3.3 (1.3-6.7) K/mm3 Absolute Nucleated RBC 0.000 (0.0-0.012) K/mm3 Nucleated RBC % 0.0 (0.0-0.2) % Sodium 135 L (137-145) mmol/L Potassium 4.9 (3.4-5.0) mmol/L Chloride 101 (98-107) mmol/L Carbon Dioxide 29 (22-30) mmol/L Anion Gap 5 (4-12) mmol/L BUN 4 L (7-17) mg/dL Creatinine 0.55 L (0.7-1.0) mg/dL Estim Creat Clear Calc 142 ml/min Estimated GFR > 60 (59 - ) Glucose 91 (65-110) mg/dL Calcium 9.4 (8.4-10.2) mg/dL Total Bilirubin 0.6 (0.2-1.3) mg/dL AST 46 H (14-36) U/L ALT 31 (6-35) U/L Alkaline Phosphatase 54 (38-126) U/L Total Protein 7.7 (6.3-8.2) g/dL Albumin 4.2 (3.5-5.1) g/dL Lipase 84 (23-300) U/L Influenza A (RT-PCR) Positive A (Negative) Influenza B (RT-PCR) Negative (Negative) RSV (RT-PCR) Negative (Negative) SARS-CoV-2 RNA (RT-PCR) Negative (Negative) <Devante Myrick MD - Last Filed: 07/22/25 07:21> Imaging Data Attestation: I personally reviewed and interpreted this imaging study as follows: < Devante Myrick MD - Last Filed: 07/22/25 07:21> Radiologist's impression: ITS Impressions Chest X-Ray 07/21/25 18:15 IMPRESSION: 1. No acute cardiopulmonary disease. Abdomen/Pelvis CT 07/21/25 20:15 IMPRESSION: 1. 4 cm right ovarian cyst. No other acute intra-abdominal/pelvic process with normal appendix. 2. 1.5 cm subserosal uterine fibroid. <Tia Sage PA-C - Last Filed: 07/21/25 18:00> ITS Impressions Chest X-Ray 07/21/25 18:15 IMPRESSION: 1. No acute cardiopulmonary disease. Abdomen/Pelvis CT 07/21/25 20:15 IMPRESSION: 1. 4 cm right ovarian cyst. No other acute intra-abdominal/pelvic process with normal appendix. 2. 1.5 cm subserosal uterine fibroid. <Devante Myrick MD - Last Filed: 07/22/25 07:21> Discharge Plan Discharge Clinical Impression: Influenza, Upper respiratory infection, Ovarian cyst, right <Tia Sage PA-C - Last Filed: 07/21/25 18:00> Patient Disposition: Home <SATISH Martell Last Filed: 07/21/25 18:00> Condition: Stable <SATISH Martell Last Filed: 07/21/25 18:00> Instructions: Antibiotic Form, Influenza (ED) <Tia Sage PA-C - Last Filed: 07/21/25 18:00> Additional Instructions: Symptoms consistent with influenza. He tested positive for influenza A. Found right-sided 4 cm ovarian cyst. Follow-up with your OBGYN. Continue Tylenol and ibuprofen as well as yawn-unl-dytllql cold and flu remedies. Return with any emergent concerns at any time. <Tia Sage PA-C - Last Filed: 07/21/25 18:00> Patient Language: Pashto <Tia Sage PA-C - Last Filed: 07/21/25 18:00> Prescriptions: No Action cyclobenzaprine 10 mg tablet 10 mg PO TID PRN (Reason: muscle spasm) Qty: 30 0RF <Tia Sage PA-C - Last Filed: 07/21/25 18:00> Follow-up/Referrals: NEHEMIAS,GURPREET GAYTAN [Primary Care Provider] <Tia Sage PA-C - Last Filed: 07/21/25 18:00> Time of Disposition: 20:42 <Tia Sage PA-C - Last Filed: 07/21/25 18:00> 20:42 <Devante Myrick MD - Last Filed: 07/22/25 07:21>
[2025-07-21 18:08] LABS: Hematocrit 41.0 % (37.0-47.0); Hemoglobin 13.7 g/dL (12.0-15.0); Immature Granulocyte Percent A 0.2 % (0-0.5); Lymphocytes Absolute Auto 2.01 K/mm3 (0.9-3.2); Mean Corpuscular HGB Conc 33.4 g/dl (32-36); Mean Corpuscular Hemoglobin 31.9 pg (26-34); Mean Corpuscular Volume 95.3 fl (80-100); Nucleated Red Blood Cells Absolute Auto 0.000 K/mm3 (0.0-0.012); Nucleated Red Blood Cells Perc 0.0 % (0.0-0.2); Platelet Count Result 295 k/mm3 (150-375); Red Blood Count 4.30 M/mm3 (4.2-5.4); White Blood Count 6.1 K/mm3 (4.5-10.0)
[2025-07-21 18:21] LABS: Alanine Aminotransferase 31 U/L (6-35); Albumin Level 4.2 g/dL (3.5-5.1); Alkaline Phosphatase 54 U/L (38-126); Anion Gap 5 mmol/L (4-12); Aspartate Amino Transferase 46 U/L (14-36); Bilirubin,Total 0.6 mg/dL (0.2-1.3); Blood Urea Nitrogen 4 mg/dL (7-17); Calcium 9.4 mg/dL (8.4-10.2); Carbon Dioxide 29 mmol/L (22-30); Chloride 101 mmol/L (98-107); Estimated CRCL calculation 142 ml/min; Estimated Glomerular Filt Rate > 60; Glucose 91 mg/dL (65-110); Lipase 84 U/L (23-300); Potassium 4.9 mmol/L (3.4-5.0); Sodium 135 mmol/L (137-145); Total Protein 7.7 g/dL (6.3-8.2)
[2025-07-21 19:13] LABS: Influenza A QL RT-PCR Positive (Negative); Influenza B QL RT-PCR Negative (Negative); RSV RNA, RT-PCR Negative (Negative); SARS-CoV-2 RNA PCR Negative (Negative)
[2025-07-21 20:58] VITALS: BP 132/89; PULSE 97; RESP 20; O2SAT 100
--- OUTSIDE RECORDS SUMMARY | 2025-07-21 21:00 | XMS_ITS | Encounter Summary ---
Author Organization [facility] Address [address] [place] [address] Care Team Providers Care [address] Mechanical Engineer Name Role Phone Lilly Craig Primary Care Provider [phone] Encounter Details Date Type Department Care Team (Late st Contact Info) Description 11/08/2023 MyChart Message Enc [facility] Multispecialty Care - [facility] [address], [address] [place] [phone] Zack Mcdonald MD [address] [place], [place] [phone] Release form Social History Tobacco Use Types Packs/Day Years Used Date Smoking Tobacco: Never Smokeless Tobacco: Never Alcohol Use Standard Drinks/Week Comments Yes 0 (1 standard drink = 0.6 oz pur e alcohol) [address] [facility] Utilities Answer Date Recorded In the past [...] place to sleep or slept in a long term (including now)? 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
--- OUTSIDE RECORDS SUMMARY | 2025-07-21 21:00 | XMS_ITS | Encounter Summary ---
Author Organization [facility] - [facility] Address [address] [place] [address] Care Team Providers Care Quality Lead Name Role Phone Lilly Craig Primary Care Provider [phone] Encounter Details Date Type Department Care Team (Late st Contact Info) Description 09/06/2023 MyChart Message Enc [facility] Medical Group Multispecialty Care - [facility] [address] [facility], [address] [place] [phone] Zack Mcdonald MD [address] [place], [place] [phone] Short term disability Social History Tobacco Use Types Packs/Day Years Used Date Smoking Tobacco: Never Smokeless Tobacco: Never Alcohol Use Standard Drinks/Week Comments Yes 0 (1 standard drink = 0.6 oz pur e alcohol) 1 x month [facility] Utilities Answer Date Recorded In [...] place to sleep or slept in a group home (including now)? No 08/19/2023 Comments No Sex and Gender Information Value Date Recorded Sex Assigned at Female 10/28/2024 10:50 AM CDT Legal Sex Female 1:59 PM RN INTERVENTIONAL Gender Identity Not on file Sexual Orientation [...] st Contact Info) Description 08/19/2025 1:40 PM RN INTERVENTIONAL Office Visit [facility] Medical Group Family & Internal Medicine - [address] [address] Lilly Craig FNP [address] [place] [address] documented as of this encounter Goals Goal Patient Goal Type Associated Problems Recent Progress Patient-Stated? Author Family - family caregiver with be involved in care transitions and discharge planning Lifestyle No Sander Shaffer RN documented as of this encounter Visit Diagnoses Not on filedocumented in this encounter Additional Health Concerns Assessment Noted Time PHQ-9 Depression Total Score: 2 07/25/19 24 4:08 PM RN INTERVENTIONAL documented as of this encounter Care Teams Quality Lead Relationship Specialty Start Date End Date Lilly Craig FNP [address] [place] [address] PCP - General Nurse Practitioner Family 12/30/20 documented as of this encounter
--- OUTSIDE RECORDS SUMMARY | 2025-07-21 21:00 | XMS_ITS | Clinical Summary ---
Author Organization [facility] Address [address] [place] [address] Care Team Providers Care Agility Instructor Name Role Phone Unavailable Primary Care Provider Unavailabl e Source Comments [facility],non-owned Affiliates and Associated Physician Practices is amultiple site organization consisting of ambulatory clinics and hospital sitesin [place], [place], [place] and [place]. This disclosure is being madepursuant to the Care Everywhere program and may not contain all information available regarding this patient. 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
--- OUTSIDE RECORDS SUMMARY | 2025-07-21 21:00 | XMS_ITS | Clinical Summary ---
Author Organization [facility] Address [address] [place] [address] Care Team Providers Care Salt Plant Operator Name Role Phone Lucila Craig Primary Care Provider [phone] Allergies Active Allergy Reactions Criticality Noted Date [...] oz pur e alcohol) 1 x month [facility] Utilities Answer Date Recorded In the past 12 months has e [place], gas, oil, or water [place] threatened to shut off services in your [...] place to sleep or slept in a alf (including now)? 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 SEWING MACHINE OPERATOR Gender Identity Not on file Sexual Orientation [...] st Contact Info) Description 08/19/2025 1:40 PM PINKING SEWING MACHINE OPERATOR Office Visit [facility] Medical Group Family & Internal Medicine - [address] [address] Lucila Craig, TECHNICAL SERVICES SPECIALIST[address] [phone] Health Maintenance Due Date Last Done Comments [...] 12/29/2020 Hepatitis C Completed 01/06/2021 PHQ-2 (Physician [place]) Completed 10/28/2024 Hepatitis A Vaccines Aged Out [...] Shaffer, RN Medical Devices Implanted Type Area Billing Representative Device Identifier Shelf Expiration Date Model / Serial / Lot Graft Infuse Bone Small - [id number] Implanted:Qty: 1 on 08/19/2023 by Zack Mcdonald MD at [facility] Bone N/A: Spine Lumbar [employer] [id number] 01/19/2025 [id number] / / [id number] Medtronic 35mm Pyramid Plate Implanted:Qty: 1 on 08/19/2023 by Zack Mcdonald MD at [facility] Plate N/A: Spine Lumbar [id number] / / Medtronic 6.5x30mm Screw Implanted:Qty: 4 on 08/19/2023 by Zack Mcdonald MD at [facility] Screw N/A: Spine Lumbar [employer] [id number] / / Medtronic Anteralign Spinal System With Titan Nanolock Ls Spacer [id number] Implanted:Qty: 1 on 08/19/2023 by Zack Mcdonald MD at [facility] Spacer N/A: Spine Lumbar [employer] 01/15/2030 [id number] / / [id number] Graft Soft Tissue 4x4cm [facility] Allograft - [id number] Implanted:Qty: 1 on 08/19/2023 by Zack Mcdonald MD at [facility] Tissue N/A: Spine Lumbar [employer] 10/23/2027 [id number] / [id number] / Medtronic Pilo Demineralized Bone Matrix 2.5cc Implanted:Qty: 1 on 08/19/2023 by Zack Mcdonald MD at [facility] N/A: Spine Lumbar [employer] 11/18/2025 [id number] / [id number] / Medtronic 12mm Anteralign Implanted:Qty: 1 on 08/19/2023 by Zack Mcdonald MD at [facility] N/A: Spine Lumbar [employer] [id number] / / [id number] Procedures Procedure Name Priority Date/Time Associated Diagnosis [...] SPEC DESCRIPTION CERVIX 10/30/19 1:02 PM CDT [facility] HPV DNA HIGH RISK NEGATIVE NEGATIVE 10/30/2024 12:37 PM CDT [facility] Comment:SEE CYTOLOGY REPORT 10/28/2024 12:0 0 PM CDT us Lucila FREGOSO PATHOLOGY/CYTOLOGY ORDERABLES Final Result [facility] [address] [place] [address], * Cytopath Cerv/Vag Thin Layer (10/28/2024 12:00 AM CDT) THIN PREP PAP [facility] [address] [place] [address] Department of Pathology Pathology Report CERVICAL/VAGINAL PAP SMEAR REPORT Name: LUCILA TRIPLETT Age: 8 1990 (Age: 34) Location: [facility] Sex: F Collected Date: 10/28/2024 Hospital #: [id number] Date Received: 10/29/2024 Date Reported: 11/02/2024 Provider: [...] is not effective in detecting cervical adenocarcinoma. [facility] () [facility] 10/28/2024 10/29/2024 10: 42 AM CDT Comment:CERVICAL/ENDOCERVICA L Lucila FREGOSO PATHOLOGY/CYTOLOGY ORDERABLES Final Result [facility] [address] [place] [address], * HEPATITIS C ANTIBODY W/RFX TO HCV RNA ([facility]) (01/06/2021 9:27 AM CDT) HEPATITIS C AB Nonreactive Nonreactive 01/10/20 7:38 PM CDT [facility] SIGNAL TO CUTOFF 0.02 <1.00 ratio 01/09/2021 7:38 PM CDT [facility]AD[facility] Comment: HCV antibody was Nonreactive. There is no laboratory evidence of HCV infection. In most cases, no further action is required. However, if recent HCV exposure is suspected, a test for HCV RNA (test code 26121) is suggested. For additional information please refer to http://education.CashBet/faq/QUG32s3 (This link is being provided for informational/ educational purposes only.) ADDITIONAL TESTING REPORT 01/09/2021 7:38 PM CDT [facility] JOSE BRADEN Comment: Not indicated Test Performed by Arron M[facility] [facility], [address] [place], [place] Christophe Keenan M.D., Ph.D., Director of Laboratories , [facility] [id number] 01/06/2021 9:27 AM CDT Lucila FREGOSO LABORATORY Final Result [facility] [address] [place] [address], from Last 3 Months or Most Recently Relevant to Health Maintenance Insurance [facility] Advance Directives Documents on File Type Date Recorded Patient Unpaid Intern Expl anation Legal Documents 09/26/2021 9:36 AM GIRMA CASTLE [employer] DOS 06/21/2021 Legal Documents 09/14/2021 12:50 PM SETTLE MENT [id number] DOS 03/17/2021 * Full Code (Latest Code Status on File) Date Activated Date Inactivated Comments 08/19/2023 5:04 PM 08/20/2023 5:30 PM Care Teams Salt Plant Operator Relationship Specialty Start Date End Date Lucila Craig FNP [address] [place] [address] PCP - General Nurse Practitioner Family 12/30/20
--- OUTSIDE RECORDS SUMMARY | 2025-07-21 21:00 | XMS_ITS | Encounter Summary ---
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 HAND Gender Identity Not on file Sexual Orientation Not on file documented as of this encounter Progress Notes * ILDEFONSO Stephens - 04/09/2022 5:14 PM CDT We can offer her paxlovid treatment documented in this encounter Plan of Treatment Upcoming Encounters Date Type Department Care Team (Late st Contact Info) Description 08/19/2025 1:40 PM SMOKING TOBACCO PACKING MACHINE HAND Office Visit [facility] Medical Group Family & Internal Medicine - [address] [address] Lilly Craig FNP [address] [place] [address] documented as of this encounter Visit Diagnoses Not on filedocumented in this encounter Additional Health Concerns Assessment Noted Time PHQ-9 Depression Total Score: 2 12/06/19 22 4:22 PM CDT documented as of this encounter Care Teams Tank Bottom Assembler Relationship Specialty Start Date End Date Lilly Craig FNP [address] [place] [address] PCP - General Nurse Practitioner Family 12/30/20 documented as of this encounter
--- OUTSIDE RECORDS SUMMARY | 2025-07-21 21:00 | XMS_ITS | Encounter Summary ---
Author Organization [facility] Address [address] [place] [address] Care Team Providers Care Director Of Procurement Name Role Phone Lilly Craig Primary Care Provider [phone] Encounter Details Date Type Department Care Team (Late st Contact Info) Description 08/08/2023 MyChart Message Enc [facility] Medical Group Multispecialty Care - [facility] [address] [facility], [address] [place] [phone] Zack Mcdonald MD [address] [place], [place] [phone] Short term disability Social History Tobacco Use [...] AM CDT Legal Sex Female 1:59 PM 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 [employer]INE [employer]IES Gender Identity Not on file Sexual Orientation Not on file documented as of this encounter Plan of Treatment Upcoming Encounters Date Type Department Care Team (Late st Contact Info) Description 08/19/2025 1:40 PM 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 MARINE SUPPLIES Office Visit [facility] Medical Group Family & Internal Medicine - [place] [address] [place] [address] Lilly Craig FNP [address] [place] [address] documented as of this encounter Visit Diagnoses Not on filedocumented in this encounter Additional Health Concerns Assessment Noted Time PHQ-9 Depression Total Score: 2 07/25/19 24 4:08 PM 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 [employer]INE [employer]IES documented as of this encounter Care Teams Director Of Procurement Relationship Specialty Start Date End Date Lilly Craig FNP [address] [place] [address] PCP - General Nurse Practitioner Family 12/30/20 documented as of this encounter
--- OUTSIDE RECORDS SUMMARY | 2025-07-21 21:00 | XMS_ITS | Encounter Summary ---
Author Organization [facility] - [facility] Address [address] [place] [address] Care Team Providers Care Carrier Associate Name Role Phone Lilly Craig Primary Care Provider [phone] Encounter Details Date Type Department Care Team (Late st Contact Info) Description 05/06/2023 DeskGodt Message Enc [facility] Medical Group Multispecialty Care - [facility] [address] [facility], [address] [place] [phone] Anastasiya Shah APRN [address] [facility] [address] [place], [place] [phone] Surgery Social History Tobacco Use Types Packs/Day [...] AM CDT Legal Sex Female 1:59 PM 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 documented in this encounter Plan of Treatment Upcoming Encounters Date Type Department Care Team (Late st Contact Info) Description 08/19/2025 1:40 PM MANUFACTURING LEAD Office Visit [facility] Medical Group Family & Internal Medicine - [address] [address] Lilly Craig FNP [address] [place] [address] documented as of this encounter Visit Diagnoses Not on filedocumented in this encounter Additional Health Concerns Assessment Noted Time PHQ-9 Depression Total Score: 2 12/06/19 22 4:22 PM CDT documented as of this encounter Care Teams Carrier Associate Relationship Specialty Start Date End Date Lilly Craig FNP [address] [place] [address] PCP - General Nurse Practitioner Family 12/30/20 documented as of this encounter
--- OUTSIDE RECORDS SUMMARY | 2025-07-21 21:00 | XMS_ITS | Encounter Summary ---
Author Organization [facility] Address [address] [place] [address] Care Team Providers Care Discharge Rn Name Role Phone Lilly Craig Primary Care Provider [phone] Encounter Details Date Type Department Care Team (Late st Contact Info) Description 08/05/2023 Prep for Procedure [facility] [place], [place] [phone] Lilly Craig FNP [facility] [address] [place], [place] [phone] Social History Tobacco Use Types Packs/Day Years [...] AM CDT Legal Sex Female 1:59 PM RAYON CONER Gender Identity Not on file Sexual Orientation Not on file documented as of this encounter Plan of Treatment Upcoming Encounters Date Type Department Care Team (Late st Contact Info) Description 08/19/2025 1:40 PM RAYON CONER Office Visit [facility] Medical Group Family & Internal Medicine [address] [address] Lilly Craig FNP [address] [place] [address] documented as of this encounter Visit Diagnoses Diagnosis Vitamin B12 deficiency- Primary Other B-complex deficiencies Class 1 obesity documented in this encounter Additional Health Concerns Assessment Noted Time PHQ-9 Depression Total Score: 2 07/25/19 24 4:08 PM RAYON CONER documented as of this encounter Care Teams Discharge Rn Relationship Specialty Start Date End Date Lilly Craig FNP [address] [place] [address] PCP - General Nurse Practitioner Family 12/30/20 documented as of this encounter
== END 2025-07-21 21:13 | disposition home or self-care (01) ==
LOC: ANHED 20:58
PROVIDERS: Physician Assistant; Student in an Organized Health Care Education/Training Program; Emergency Provider Student in an Organized Health Care Education/Training Program; PCP Nurse Practitioner Family
DX: J10.1 Influenza due to other identified influenza virus with other respiratory manifestations (principal); N83.201 Unspecified ovarian cyst, right side; Z20.822 Contact with and (suspected) exposure to COVID-19
CPT/HCPCS: 36415; 71046; 74177; 80053; 83690; 85025; 87637; 99284; Q9967